=== PATIENT | male | born 1995 | race Caucasian/White ===

== ENCOUNTER 2018-02-01 07:17 | Observation (INO) | payer OTHER ==
[~2018-02-01] VITALS: Ht 185.4 cm; Wt 97.7 kg
[~2018-02-01 07:17] MED LIST: METO50TA4 PO
[2018-02-01 07:33] VITALS: BP 148/103
[2018-02-01] MEDS ORDERED: SODIUM CHLORIDE 0.9% 1,000 ML IV SCH (07:52)
[2018-02-01] MEDS ORDERED: MIDAZOLAM 1 MG/ML, 2ML ONE (08:14)
[2018-02-01] MEDS ORDERED: FENTANYL PF 100 MCG/2ML ONE (08:14)
[2018-02-01] MEDS ORDERED: LIDOCAINE 2%, 20ML ONE (08:15)
[2018-02-01] MEDS ORDERED: ISOPROTERENOL 0.2MG/ML, 5ML ONE (08:15)
[2018-02-01] MEDS ORDERED: METO-93 PO (08:25)
[2018-02-01] MEDS ORDERED: ADENOSINE 6 MG/2 ML ONE (09:41)
[2018-02-01] MEDS ORDERED: HEPARIN 1,000 UNITS/ML, 10ML ONE ×2 (10:25→10:45)
[2018-02-01] MEDS ORDERED: MIDAZOLAM 1 MG/ML, 5ML ONE ×2 (10:33→11:56)
[2018-02-01] MEDS ORDERED: FENTANYL PF 250 MCG/5ML ONE (10:33)
[2018-02-01] MEDS ORDERED: DIPHENHYDRAMINE 50 MG/ML, 1ML IVPush ONE (11:00)
[2018-02-01] MEDS ORDERED: PROTAMINE SULFATE 10 MG/ML, 5ML ONE (12:25)
[2018-02-01] MEDS ORDERED: ASPIRIN 325 MG TABLET EC PO ONE (13:00)
[2018-02-01] MEDS ORDERED: ZOLPIDEM 5MG TABLET PO PRN (13:00)
[2018-02-01] MEDS ORDERED: ACETAMINOPHEN 325 MG TABLET PO PRN (13:00)
[2018-02-01 14:00] VITALS: BP 132/88
[2018-02-01] MEDS ORDERED: KETOROLAC 30 MG/1 ML ONE (16:16)
[2018-02-01] MEDS ORDERED: HYDROcodone/APAP 5/325 TABLET PO PRN (16:30)
[2018-02-01] MEDS ORDERED: KETOROLAC 30 MG/1 ML IVPush ONE (16:30)
[2018-02-01 20:54] VITALS: BP 134/84
[2018-02-02 02:11] VITALS: BP 122/79
[2018-02-02 07:54] VITALS: BP 132/85
[2018-02-02] MEDS ORDERED: ASPI325T17 PO (09:01)
== END 2018-02-02 10:49 | disposition home or self-care (01) ==
LOC: CACL 07:17 → ORIP 12:41 → 5SO 13:30
PROVIDERS: ADMIT Internal Medicine Cardiovascular Disease; ATTEND Internal Medicine Cardiovascular Disease
DX: I47.1 Supraventricular tachycardia (principal); Z79.82 Long term (current) use of aspirin; I10 Essential (primary) hypertension
CPT/HCPCS: 93462; 93613; 93621; 93623; 93653; 93655; 96374; C1730; C1766; C1893; C1894; C2630; G0378; J0153; J1644; J1885; J2250; J2720; J3010; J3490